=== PATIENT | male | born 1960 | race Caucasian/White ===

== ENCOUNTER 2021-10-15 15:57 | Emergency (ER) | payer OTHER, MEDICAID, SELFPAY ==
[2021-10-15] VITALS (33 sets, daily range): BP systolic 82–131; BP diastolic 54–96; PULSE 61–124; RESP 11–29; TEMP 34.8–36.2; O2SAT 0–98; BMI 20.3
--- NOTE | 2021-10-15 16:21 | DI.RAD.S_ITS ---
PROCEDURE: XR CHEST 2V INDICATIONS: shortness of breath TECHNIQUE: 2 views of the chest were acquired. COMPARISON: None. FINDINGS: Surgical changes and devices: None. Lungs and pleura: Mild retrocardiac opacity. Mediastinum: Mediastinal contours are normal. Heart size is enlarged. Bones and chest wall: No suspicious bony abnormalities. Soft tissues appear unremarkable. IMPRESSION: Mild retrocardiac opacity suggestive of pneumonia. Dictated by: Roselia Flores M.D. on 10/15/2021 at 17:03 Approved by: Roselia Flores M.D. on 10/15/2021 at 17:03
[2021-10-15 17:17] LABS: COVID19 -Nasal RAPID Negative (Negative)
[2021-10-15 18:10] LABS: Add Manual Diff / Slide Review NO; Basophils Absolute Auto 0 /uL (0-100); Basophils Percent Auto 0.2 % (0-2); Eosinophils Absolute Auto 100 /uL (0-450); Eosinophils Percent Auto 0.6 % (2-4); Hematocrit 42.2 % (41-53); Lymphocytes Absolute Auto 1000 /uL (1100-4500); Lymphocytes Percent Auto 10.2 % (25-40); Mean Corpuscular HGB Conc 33.2 % (30-36); Mean Corpuscular Hemoglobin 33.2 PG (26-34); Mean Corpuscular Volume 99.9 fL (80-100); Monocytes Absolute Auto 1200 /uL (0-900); Monocytes Percent Auto 12.7 % (3-14); Neutrophils Absolute Auto 7200 /uL (1500-7000); Neutrophils Percent Auto 76.3 % (50-75); Platelet Count 133 X10^3/uL (150-400); Red Blood Cell Count 4.23 X10^6/uL (4.5-5.9); Red Cell Distribution Width 22.5 % (11.6-14.8); White Blood Cell Count 9.4 X10^3/uL (4.5-11.0)
--- NOTE | 2021-10-15 18:23 | ED_ITS ---
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 intact.? Mild diffuse cortical volume loss.? Slightly increased for stated age. ? Skull and face:? Calvarium and facial bones appear intact, without suspicious lesions.? Orbits appear normal.? ? Sinuses:? Circumferential mucosal thickening of the left maxillary sinus.? Sinuses and mastoids are otherwise clear.? ? HEAD CT ANGIOGRAPHY:? Anterior circulation:? Heavy atherosclerotic calcification in the cavernous portions of both internal carotid arteries with bilateral moderate subjective luminal stenosis.? Intracranial internal carotid arteries are normal in size and flow.? The flow within the paired anterior cerebral arteries is normal and symmetric.? The flow within the middle cerebral arteries is normal and symmetric.? The anterior communicating artery is seen.? No aneurysms are seen.? ? Posterior circulation:? Visualized portions of the vertebral arteries demonstrate normal caliber, and join to form a normal appearing basilar artery.? Mild vertebral artery calcification at the foramen magnum.? Flow within the posterior cerebral arteries is normal and symmetric.? No aneurysms are seen.? ? NECK CT ANGIOGRAPHY:? Carotid system:? There is motion artifact the of the proximal internal carotid arteries.? Motion artifact at the level of the proximal common carotid arteries no convincing stenosis.? No calcifications.? No dissection.? Motion artifact at the level of the carotid bulbs and internal carotid artery origins.? Heavy partially circumferential calcification at the left carotid bulb without significant luminal stenosis at the ICA.? Mild right carotid bulb calcification.? The great vessels demonstrate a conventional anatomy as they arise from the aortic arch.? The origins of the common carotid arteries appear patent.? The common carotid arteries demonstrate normal caliber and courses.? The internal carotid arteries demonstrate normal calibers and courses.? ? Posterior circulation:? Calcification at the right and left vertebral artery origins, left greater than right.? Calibers are symmetric.? There are several areas of scattered calcifications in the proximal vertebral arteries.? No evidence of dissection. ? Soft tissues:? Endotracheal tube and orogastric tubes are present.? There are moderately severe emphysematous changes in the upper lobes.? There is a subpleural left posterior upper lobe lung mass.? Please see full dictation on separate chest CT. ? Bones:? No suspicious bone lesions.? Severe degenerative disc and endplate changes through the cervical spine.? No pathologic subluxation. ? ? IMPRESSION:? ? 1. No CT evidence of acute intracranial process. ? 2. Heavy atherosclerotic calcification in the intracranial internal carotid arteries bilaterally causing at least moderate bilateral luminal stenoses. ? 3. No focal arterial occlusion, dissection, or aneurysm in the head or neck. ? 4. Scattered vascular calcification in vertebral arteries and of the carotid bulbs, left greater than right. ? 5. There is motion artifact? ? Any quantitative measurements of stenosis were performed using NASCET criteria.? ? ? Dictated by: Kajal Toney M.D. on 10/15/2021 at 23:31 ? ? Approved by: Kajal Toney M.D. on 10/15/2021 at 23:43 ? CT scan - chest: Radiologist's Impression: [place] [address] CT Scan Report Signed Patient: Bertram Mcdowell MR#: [id number] : 1960 Acct:[id number] Age/Sex: 61 / M Date of Service: 10/15/21 Loc: ED Accession Number: [id number] ?? Procedure: CT angio chest PE protocol Ordering Provider: Misbah Cotto MD PROCEDURE:? CT ANGIO CHEST PE PROTOCOL ? INDICATIONS:? Respiratory failure ? TECHNIQUE:? After the administration of intravenous contrast, 2 mm thick sections acquired from the pulmonary apices to the posterior costophrenic angles.? 3-dimensional maximum intensity projection (MIP) coronal and sagittal reformats were then acquired through the thorax.? For radiation dose reduction, the following was used:? automated exposure control, adjustment of mA and/or kV according to patient size.? ? COMPARISON:? None. ? FINDINGS:? Image quality:? Excellent.? ? Pulmonary arteries:? Pulmonary arteries are normal size.? Central pulmonary arteries demonstrate normal opacification.? In the mid to lower lobes, there is suboptimal opacification diffusely of pulmonary arteries secondary to suboptimal scan timing.? No pulmonary embolus is suspected. ? Lungs and pleura:? There are moderate emphysematous changes.? There is a spiculated, rounded, pleural-based lung mass measuring about 3.6 cm in the posterior left upper lobe. ?There are patchy moderate bibasilar alveolar opacities posteriorly in the lower lungs.? No pleural effusions or pneumothorax.? A tiny lingular nodule in the anterior costophrenic sulcus measures 7 mm. ? Mediastinum:? The heart is markedly enlarged with a small pericardial effusion.? There are no periaortic or mediastinal hematomas.? Confluent nonfocal mild bilateral hilar adenopathy, left greater than right and subcarinal soft tissue, nonspecific in this setting.? Orogastric tube is present coursing through the esophagus.? An endotracheal tube is present in the airway at the appropriate location. ? Bones and chest wall:? No suspicious bony lesions.? Ribs and thoracic spine appear intact throughout.? Thyroid gland contain right lobe cyst..? No axillary or supracla vicular adenopathy.? ? Abdomen:? Visible upper abdomen demonstrates ascites, partially imaged mild b ilateral adrenal gland thickening and generalized anasarca. ? IMPRESSION:? ? 1. No definite pulmonary embolus. ? 2. Bibasilar airspace opacities, potentially contusion or aspiration. ? 3. Left upper lobe lung mass suspicious for malignancy in the setting of COPD.? Tissue acquisition is recommended after resolution of acute disease. ? 4. Marked cardiomegaly with small pericardial effusion. ? 5.? Upper abdominal anasarca and ascites. ? ? Dictated by: Kajal Toney M.D. on 10/15/2021 at 23:43 ? ? Approved by: aKjal Toney M.D. on 10/15/2021 at 23:51 ? ECG Data Interpretation: Atrial flutter rate 122, 2-1 AV conduction MDM Narrative Medical decision making narrative: Appropriate for admission for community-acquired pneumonia. Patient has high r isk of worsening as he is homeless. In addition will need family caseworker discharge planning for patient's current state of health and further needs on discharge possible SNF 10:00 p.m.. Disposition has changed. Patient will need transfer. We do not have ICU. Patient has now been intubated after code blue. Patient was defibrillated. But still in atrial flutter. Central line placed by anesthesiologist dr light Antibiotics have been started. 3 L of LR and 1 L of normal saline have been g iven during course of stay, 4 L of IVF total so far blood pressure has been maintained very well after intubation, no vasopressors required. Patient tolerating propofol very well. As cardiology recommended, IV fluids would improve his heart rate. Currently at this time, 12:33 a.m.. Heart rate is now 102, much better than arrival. His blood pressure has gone up as well at 101/76. I believe vasopressors may stimulate his heart causing tachycardia. At this time IV fluids are working for blood pressure as well as heart rate. Patient skin color is much better now. Warm and pink. At this time appropriate to stay the course. Critical Care Time Critical Care Time Attestation: Critical Care Time 35 minutes: Critical care time is separate from other billable procedures. This critical c are time includes consultation with family and other consulting doctors, review of records, and interpretation of data from labs, EKGs, imaging, etc. Discharge Plan Departure Patient Disposition: [facility] Clinical Impression: Respiratory failure requiring intubation Referrals: Tegan Collins PA-C [Primary Care Provider] -
[2021-10-15] MEDS: SODIUM CHLORIDE 0.9% 500 ML 1000 ML IV (18:38)
[2021-10-15 18:39] LABS: Alanine Aminotransferase 34 IU/L (<50); Albumin 3.7 g/dL (3.5-5.0); Albumin Globulin Ratio 1.4 (1.0-2.8); Alkaline Phosphatase 99 U/L (38-126); Aspartate Aminotransferase 85 IU/L (17-59); BUN Creatinine Ratio 30.5 (6-22); Bilirubin Total 1.7 mg/dL (0.2-1.3); Blood Urea Nitrogen 47 mg/dL (9-20); Calcium 8.6 mg/dL (8.4-10.2); Carbon Dioxide 24 mmol/L (22-32); Chloride 85 mmol/L (98-107); Estimated Glomerular Filt Rate 51 mL/min (>60); Globulin 2.7 g/dL (1.7-4.1); Glucose 96 mg/dL (80-110); Potassium 4.5 mmol/L (3.4-5.1); Sodium 123 mmol/L (137-145); Total Protein 6.4 g/dL (6.3-8.2)
[2021-10-15 18:48] LABS: Lactate (Lactic Acid) 4.7 mmol/L (0.7-2.1); NT-proBNP (BNP-Adult 18+) 11900 pg/mL (<125)
[2021-10-15 18:54] LABS: Anisocytosis 2+; Poikilocytosis 1+
[2021-10-15 18:58] LABS: Procalcitonin 0.16 ng/mL (<0.5)
[2021-10-15] MEDS: cefTRIAXone 2,000 MG in SODIUM CHLORIDE 0.9% 100 ML 200 MG IV (19:24)
[2021-10-15 20:01] LABS: INR 4.7 (0.9-1.3)
[2021-10-15] MEDS: AZITHROMYCIN 500 MG in DEXTROSE 5% IN WATER 250 ML 250 MG IV (20:01)
[2021-10-15 20:02] LABS: Prothrombin Time 54.3 SECONDS (10.1-12.7)
[2021-10-15 20:03] LABS: Reflexed Lactate in 2 Hours Y
[2021-10-15 20:12] LABS: HEMOLYSIS < 15 (0-50); Troponin I 0.048 ng/mL (0.01-0.034)
[2021-10-15 20:13] LABS: Ethanol (ETOH) < 10 mg/dL
[2021-10-15] MEDS: SODIUM CHLORIDE 0.9% 1,000 ML 1000 ML IV (20:41)
[2021-10-15 20:46] LABS: Lactate 2HR (Lactic Acid Rflx) 5.2 mmol/L (0.7-2.1)
--- NOTE | 2021-10-15 21:31 | DI.CT.S_ITS ---
PROCEDURE: CT ANGIO CHEST PE PROTOCOL INDICATIONS: Respiratory failure TECHNIQUE: After the administration of intravenous contrast, 2 mm thick sections acquired from the pulmonary apices to the posterior costophrenic angles. 3-dimensional maximum intensity projection (MIP) coronal and sagittal reformats were then acquired through the thorax. For radiation dose reduction, the following was used: automated exposure control, adjustment of mA and/or kV according to patient size. COMPARISON: None. FINDINGS: Image quality: Excellent. Pulmonary arteries: Pulmonary arteries are normal size. Central pulmonary arteries demonstrate normal opacification. In the mid to lower lobes, there is suboptimal opacification diffusely of pulmonary arteries secondary to suboptimal scan timing. No pulmonary embolus is suspected. Lungs and pleura: There are moderate emphysematous changes. There is a spiculated, rounded, pleural-based lung mass measuring about 3.6 cm in the posterior left upper lobe. There are patchy moderate bibasilar alveolar opacities posteriorly in the lower lungs. No pleural effusions or pneumothorax. A tiny lingular nodule in the anterior costophrenic sulcus measures 7 mm. Mediastinum: The heart is markedly enlarged with a small pericardial effusion. There are no periaortic or mediastinal hematomas. Confluent nonfocal mild bilateral hilar adenopathy, left greater than right and subcarinal soft tissue, nonspecific in this setting. Orogastric tube is present coursing through the esophagus. An endotracheal tube is present in the airway at the appropriate location. Bones and chest wall: No suspicious bony lesions. Ribs and thoracic spine appear intact throughout. Thyroid gland contain right lobe cyst.. No axillary or supraclavicular adenopathy. Abdomen: Visible upper abdomen demonstrates ascites, partially imaged mild bilateral adrenal gland thickening and generalized anasarca. IMPRESSION: 1. No definite pulmonary embolus. 2. Bibasilar airspace opacities, potentially contusion or aspiration. 3. Left upper lobe lung mass suspicious for malignancy in the setting of COPD. Tissue acquisition is recommended after resolution of acute disease. 4. Marked cardiomegaly with small pericardial effusion. 5. Upper abdominal anasarca and ascites. Dictated by: Kajal Toney M.D. on 10/15/2021 at 23:43 Approved by: Kajal Toney M.D. on 10/15/2021 at 23:51
--- NOTE | 2021-10-15 21:31 | DI.RAD.S_ITS ---
PROCEDURE: XR CHEST 1V INDICATIONS: Post intubation TECHNIQUE: One view of the chest was acquired. COMPARISON: [facility], , XR CHEST 2V, 10/15/2021, 16:45. FINDINGS: Surgical changes and devices: Endotracheal tube is in expected position above the mahendra. Orogastric tube is present coursing through the mediastinum and the tip is below the diaphragm, not included on the film. There are defibrillator pads overlying the left chest. Lungs and pleura: There is a 3.3 cm opacity in the left lateral upper lobe. There are diffuse reticulonodular opacities seen throughout both lungs, particularly right lower lung fibrosis or interstitial pneumonitis. Mediastinum: The heart is enlarged. Mediastinal contour is normal. No significant central venous congestion. Bones and chest wall: No suspicious bony lesions. Overlying soft tissues appear unremarkable. IMPRESSION: 1. Adequate placement of tubes. 2. Diffuse interstitial opacity, potentially chronic lung disease. 3. 3.3 cm left upper lobe lung mass. Dictated by: Kajal Toney M.D. on 10/15/2021 at 21:57 Approved by: Kajal Toney M.D. on 10/15/2021 at 22:05
--- NOTE | 2021-10-15 21:32 | DI.CT.S_ITS ---
PROCEDURE: CT ANGIO HEAD AND NECK INDICATIONS: Left hand weakness TECHNIQUE: Pre-contrast 4.5 mm thick sections acquired from the foramen magnum to the vertex. After the administration of intravenous contrast, 1 mm thick sections acquired from the aortic arch through the [place] of [place]. Post-contrast 4.5 mm thick sections then re-acquired from the foramen magnum to the vertex. 3-dimensional zmwafhx-bxkspikdk-uxbkohjrfa (MIP) and/or volume rendering reformats were acquired of the central intracranial vasculature and neck separately. For radiation dose reduction, the following was used: automated exposure control, adjustment of mA and/or kV according to patient size. COMPARISON: None. FINDINGS: Image quality: Excellent. BRAIN: CSF spaces: Ventricles are normal in size and shape. Basal cisterns are patent. No extra-axial fluid collections. Brain: No midline shift. No intracranial bleeds or masses. Branch-white matter interface appears intact. Mild diffuse cortical volume loss. Slightly increased for stated age. Skull and face: Calvarium and facial bones appear intact, without suspicious lesions. Orbits appear normal. Sinuses: Circumferential mucosal thickening of the left maxillary sinus. Sinuses and mastoids are otherwise clear. HEAD CT ANGIOGRAPHY: Anterior circulation: Heavy atherosclerotic calcification in the cavernous portions of both internal carotid arteries with bilateral moderate subjective luminal stenosis. Intracranial internal carotid arteries are normal in size and flow. The flow within the paired anterior cerebral arteries is normal and symmetric. The flow within the middle cerebral arteries is normal and symmetric. The anterior communicating artery is seen. No aneurysms are seen. Posterior circulation: Visualized portions of the vertebral arteries demonstrate normal caliber, and join to form a normal appearing basilar artery. Mild vertebral artery calcification at the foramen magnum. Flow within the posterior cerebral arteries is normal and symmetric. No aneurysms are seen. NECK CT ANGIOGRAPHY: Carotid system: There is motion artifact the of the proximal internal carotid arteries. Motion artifact at the level of the proximal common carotid arteries no convincing stenosis. No calcifications. No dissection. Motion artifact at the level of the carotid bulbs and internal carotid artery origins. Heavy partially circumferential calcification at the left carotid bulb without significant luminal stenosis at the ICA. Mild right carotid bulb calcification. The great vessels demonstrate a conventional anatomy as they arise from the aortic arch. The origins of the common carotid arteries appear patent. The common carotid arteries demonstrate normal caliber and courses. The internal carotid arteries demonstrate normal calibers and courses. Posterior circulation: Calcification at the right and left vertebral artery origins, left greater than right. Calibers are symmetric. There are several areas of scattered calcifications in the proximal vertebral arteries. No evidence of dissection. Soft tissues: Endotracheal tube and orogastric tubes are present. There are moderately severe emphysematous changes in the upper lobes. There is a subpleural left posterior upper lobe lung mass. Please see full dictation on separate chest CT. Bones: No suspicious bone lesions. Severe degenerative disc and endplate changes through the cervical spine. No pathologic subluxation. IMPRESSION: 1. No CT evidence of acute intracranial process. 2. Heavy atherosclerotic calcification in the intracranial internal carotid arteries bilaterally causing at least moderate bilateral luminal stenoses. 3. No focal arterial occlusion, dissection, or aneurysm in the head or neck. 4. Scattered vascular calcification in vertebral arteries and of the carotid bulbs, left greater than right. 5. There is motion artifact Any quantitative measurements of stenosis were performed using NASCET criteria. Dictated by: Kajal Toney M.D. on 10/15/2021 at 23:31 Approved by: Kajal Toney M.D. on 10/15/2021 at 23:43
[2021-10-15] MEDS: LACTATED RINGERS 1,000 ML 1000 ML IV ×3 (21:42→22:55)
[2021-10-15 22:29] LABS: Ur Creatinine Normal (Normal); Ur Specific Gravity Normal (Normal); Urine pH Normal (Normal)
[2021-10-15 22:34] LABS: UR Morphine/Opiate cutoff 300 Positive (Negative); Urine Amphetamines Negative (Negative); Urine Barbiturates Negative (Negative); Urine Benzodiazepines Negative (Negative); Urine MDMA Negative (Negative); Urine Methadone Negative (Negative); Urine Methamphetamines Positive (Negative); Urine Oxycodone Positive (Negative); Urine Phencyclidine Negative (Negative); Urine Tricyclic Antidepressant Negative (Negative)
[2021-10-15 22:36] LABS: Urine Cocaine Negative (Negative)
[2021-10-15] MEDS: propofoL 200 MG/20 ML VIAL 20 MG IV (23:20)
--- NOTE | 2021-10-15 23:28 | PC.NURSE ---
VS done Q5min, pt temp 96.3 with core temp cath in place, provider notified at that time at 2145, Bear hugger placed of pt along with warm blankets. Pt has received 3L LR per orders, SBP in low 100's, Temp down to 94.6 at 2320, provider notified at again. Instructed to hold any further fluid at this time to allow patient to warm. Pt with low O2 reading, extremities all very cold.
[2021-10-15 23:32] LABS: pH ABG 7.13 (7.35-7.45)
[2021-10-15 23:33] LABS: Fractionated Inspired Oxygen 100; HCO3 ABG 16 mmol/L (22-26); Oxygen Saturation ABG 83 % (95-100); PCO2 ABG 46.9 mmHg (35-45); PO2 ABG 62 mmHg (80-100); TCO2 ABG 17 mmol/L (21-31)
[2021-10-15] MEDS: propofoL 1,000 MG/100 ML VIAL 2.041 MG IV (23:37)
--- NOTE | 2021-10-15 23:59 | DI.RAD.S_ITS ---
PROCEDURE: XR CHEST 1V INDICATIONS: Right IJ central line TECHNIQUE: One view of the chest was acquired. COMPARISON: [facility], CR, XR CHEST 1V, 10/15/2021, 21:31. FINDINGS: Surgical changes and devices: New right IJ central venous line is in place. The tip is in the distal SVC, satisfactory position. Stable and satisfactory position of endotracheal and orogastric tubes. Lungs and pleura: Diffuse bilateral reticulation. Slightly more prominent horizontal alveolar opacity in the retrocardiac region. 3.3 cm left upper lobe lung mass. No new effusions or pneumothorax. Mediastinum: Significant, stable cardiomegaly. Stable aortic contour. No central vascular congestion. Bones and chest wall: No suspicious bony lesions. Overlying soft tissues appear unremarkable. IMPRESSION: 1. Satisfactory position of right IJ central venous line. 2. Stable support tubes. 3. No other changes to the heart and lungs. Dictated by: Kajal Toney M.D. on 10/16/2021 at 1:16 Approved by: Kajal Toney M.D. on 10/16/2021 at 1:17
[2021-10-16] VITALS (10 sets, daily range): BP systolic 82–106; BP diastolic 59–72; PULSE 98–101; RESP 25–32; TEMP 34.9–35.3; O2SAT 74–98
--- NOTE | 2021-10-16 00:11 | PC.NURSE ---
At 2345 central line placed, was confirmed with xray, to on Propofol at 2ml/hr. Core temp is now 95.2, Pt hands have warmed as well and able to get pulse ox on finger, currently 97% while vented. BP 97/61. HR 99
--- NOTE | 2021-10-16 00:24 | PM.PROC.1 ---
Procedures Date/Time Date of procedure: 10/15/21 Time of procedure: 23:45 Central Line Placement Time out performed: Yes Patient placed on monitor/pulse ox: Yes MD prep: mask, gown and gloves Central line prep: Chlorhexidine scrub and sterile drapes applied Ultrasound used for placement: Yes Central line lumen inserted: triple Post procedure: sutured in place, good blood return, all ports aspirated, flushed, capped and sterile dressing applied Post procedure x-ray: tip of catheter in good position and no pneumothorax seen Patient tolerated procedure: well and no complications Complications: none
[2021-10-16] MEDS: SODIUM CHLORIDE 0.9% 1,000 ML 1000 ML IV (00:34)
== END 2021-10-16 01:01 | disposition short-term general hospital (02) ==
PROVIDERS: Emergency Medicine; Emergency Provider Emergency Medicine; PCP Physician Assistant
DX: J96.01 Acute respiratory failure with hypoxia (principal); R00.0 Tachycardia, unspecified; R62.7 Adult failure to thrive; J18.9 Pneumonia, unspecified organism; Z20.822 Contact with and (suspected) exposure to COVID-19
CPT/HCPCS: 31500; 36415; 36600; 70496; 70498; 71045; 71046; 71275; 80053; 80305; 80320; 82805; 83605; 83880; 84145; 84484; 85025; 85610; 87040; 87635; 92950; 93005; 94002; 94799; 96365; 96366; 96367; 99152; 99153; 99284; 99291; 99292; C9803; J0696; J2704; Q9967